=== PATIENT | male | born 1985 | race Two or more races ===

== ENCOUNTER 2021-10-12 17:25 | Emergency (ER) | payer SELFPAY ==
[2021-10-12] MEDS ORDERED: traMADol 50 MG Tab PO ONE (18:13)
[2021-10-12] MEDS ORDERED: Ibuprofen 600 MG Tab PO ONE (18:13)
[2021-10-12] MEDS ORDERED: Doxycycline 100 MG Cap PO STA (20:25)
[2021-10-12] MEDS ORDERED: cefTRIAXone 500 MG in Lidocaine 1% 1 ML IM ONE (20:25)
[2021-10-12 20:59] VITALS: BP 138/71; PULSE 81
[2021-10-14 15:12] LABS: C.TRACHOMATIS BY TMA Negative (Negative); N.GONORRHOEAE BY TMA Negative (Negative)
== END 2021-10-12 20:59 | disposition home or self-care (01) ==
LOC: MW.ED 17:25
DX: N43.3 Hydrocele, unspecified (principal); N45.3 Epididymo-orchitis; N50.89 Other specified disorders of the male genital organs
CPT/HCPCS: 76870; 81001; 87491; 87591; 93976; 96372; 99284; A9270; J0696; 99283